=== PATIENT | female | born 1955 ===

== ENCOUNTER 2018-11-04 19:50 | Emergency (ER) | payer SELFPAY ==
--- NOTE | 2018-11-04 20:34 | C.PDOC ---
History Of Present Illness 63 year old female with no significant PMHx presents to the ED c/o SOB with deep inspiration and exertion. Patient also reports feeling burning sensation all over her body. Patient reports for the past 2 days she has been feeling mid sternal chest pain that is intermittent. Patient denies chills, nausea, vomit, diarrhea, rash, headache, visual changes, numbness. Time Seen by Provider: 11/04/18 20:29 Chief Complaint (Nursing): Chest Pain History Per: Patient History/Exam Limitations: no limitations Onset/Duration Of Symptoms: Days Current Symptoms Are (Timing): Still Present Quality: Tightness Exacerbating Factors: Deep Breathing, Exertion Recent travel outside of the [place]: No Additional History Per: Patient Past Medical History Reviewed: Historical Data, Nursing Documentation, Vital Signs Vital Signs: Last Vital Signs Temp 98.7 F 11/04/18 19:53 Pulse 84 11/04/18 19:53 Resp 14 11/04/18 19:53 BP 134/74 11/04/18 19:53 Pulse Ox 99 11/04/18 19:53 - Medical History PMH: No Chronic Diseases Surgical History: No Surg Hx Family History: States: Unknown Family Hx - Social History Hx Alcohol Use: No Hx Substance Use: No - Immunization History Hx Tetanus Toxoid Vaccination: Yes Hx Influenza Vaccination: Yes Hx Pneumococcal Vaccination: Yes Review Of Systems Constitutional: Negative for: Fever, Chills Eyes: Negative for: Vision Change Cardiovascular: Positive for: Chest Pain. Negative for: Palpitations Respiratory: Positive for: Shortness of Breath, SOB with Excertion. Negative for: Cough, Wheezing Gastrointestinal: Negative for: Nausea, Vomiting, Abdominal Pain Skin: Negative for: Rash Neurological: Negative for: Weakness, Numbness, Headache, Dizziness Physical Exam - Physical Exam Appears: Non-toxic, No Acute Distress Skin: Normal Color, Warm, Dry, No Rash Head: Atraumatic, Normacephalic Eye(s): bilateral: Normal Inspection Oral Mucosa: Moist Neck: Normal ROM, Supple Chest: Symmetrical Cardiovascular: Rhythm Regular Respiratory: Normal Breath Sounds, No Rales, No Rhonchi, No Wheezing Gastrointestinal/Abdominal: Soft, No Tenderness, No Guarding, No Rebound Extremity: Normal ROM, No Tenderness, No Swelling Neurological/Psych: Oriented x3, Normal Speech, Normal Cognition Gait: Steady ED Course And Treatment - Laboratory Results Result Diagrams: 11/04/18 21:19 11/04/18 21:19 ECG: Interpreted By Me, Viewed By Me ECG Rhythm: Sinus Rhythm Interpretation Of ECG: No prior for comparissons Rate From EC (BPM) O2 Sat by Pulse Oximetry: 99 (On RA) Pulse Ox Interpretation: Normal - Radiology CXR: Interpreted by Me, Viewed By Me CXR Interpretation: Yes: No Acute Disease. No: Infiltrates, Fracture Progress - Re-Evaluation Re-evaluation Note: 11/04/18 22:38 NO IMPROVE SX CO PERSIST CHEST BURNING. VSS. OFFERED ADMISSION, DOES NOT WISH TO STAY. WILL AMA The patient declines admission to the hospital and wishes to leave the Emergency Department. This action is against my medical advice. This decision was made with informed refusal. The patient was told that admission to the hospital is necessary. Explanation of the reasons why were discussed. The risks of leaving were explained to the patient and include, but are not limited to, worsening of known or currently unknown conditions, permanent disability and from undiagnosed or untreated conditions. The patient has the capacity to make this informed decision and understands my explanation of the current medical problem and risks of leaving. The patient voluntarily accepts these risks and signed an AMA form documenting our conversation. The patient was given the opportunity to ask questions and reconsider. The patient was encouraged to return to the Emergency Department at any time for further care. - Data Reviewed Data Reviewed: Lab, Diagnostic imaging, EKG, Old records Medical Decision Making Medical Decision Making: Plan: * EKG * Labs * CXR * Nitro 0.4 mg SL * Pepcid 20 mg IVP * Toradol 30 mg IVP * Tylenol 975 mg PO Disposition Counseled Patient/Family Regarding: Studies Performed, Diagnosis, Need For Followup - Disposition Referrals: [facility] [Outside] [facility] [Outside] Disposition: AGAINST MEDICAL ADVICE Disposition Time: 23:09 Condition: GOOD Additional Instructions: VOUS AVEZ T DELPHINE DE LA NCESSIT DE MEG LOZANO MDCORINA D'URGENCE. VOUS AVEZ T DELPHINE PATRICE RISQUES DE QUITTER, INCLUANT INCAPACIT, DTERIORATION ET MORT. VOUS AVEZ DCLAR UNE COMPRHENSION VERBALE ET VOUS SOUHAITEZ PROCDER PARTIR PATRICE DELPHINE MDICAUX SUIVEZ AVEC VOTRE PMD DS QUE POSSIBLE. RETOURNER SI LES SYMPTMES D'AGRMENT. Instructions: Chest Pain (DC), Leaving Against Medical Advice Forms: [facility] (Belgian) - Clinical Impression Clinical Impression: Chest pain - Scribe Statement The provider has reviewed the documentation as recorded by the Scribe Sunny Jaime All medical record entries made by the Scribe were at my direction and personally dictated by me. I have reviewed the chart and agree that the record accurately reflects my personal performance of the history, physical exam, medical decision making, and the department course for this patient. I have also personally directed, reviewed, and agree with the discharge instructions and disposition.
[2018-11-04 21:27] LABS: BASO % 0.5 % (0.0-2.0); EOS % 0.3 % (0.0-4.0); LYMPH # 2.3 K/uL (1.0-4.3); LYMPH % 37.5 % (20.0-40.0); MEAN CELL VOLUME 74.7 fL (81.0-99.0); MEAN CORPUSCULAR HEMOGLOBIN 26.4 pg (27.0-31.0); MEAN CORPUSCULAR HGB CONC 35.4 g/dL (33.0-37.0); MEAN PLATELET VOLUME 8.4 fL (7.2-11.7); MONO # 0.5 K/uL (0.0-0.8); MONO % 8.3 % (0.0-10.0); NEUT # 3.3 K/uL (1.8-7.0); NEUT % 53.4 % (50.0-75.0); NRBC % 0.2 % (0.0-2.0); RBC 4.91 Mil/uL (3.80-5.20); RED CELL DISTRIBUTION WIDTH 13.7 % (11.5-14.5); WHITE BLOOD COUNT 6.2 K/uL (4.8-10.8)
[2018-11-04 21:41] LABS: ALB/GLOB RATIO 1.3 (1.0-2.1); ALBUMIN 4.3 g/dL (3.5-5.0); ALT/SGPT 27 U/L (9-52); AST/SGOT 34 U/L (14-36); BLOOD UREA NITROGEN 8 mg/dL (7-17); CALCIUM 9.7 mg/dl (8.6-10.4); GFR NON-AFRICAN AMERICAN > 60; LIPASE 92 U/L (23-300)
[2018-11-04 22:16] VITALS: RESP 24
[2018-11-04 23:21] VITALS: BP 145/81; PULSE 71; TEMP 98.1; O2SAT 100
--- NOTE | 2018-11-05 09:28 | RAD ---
Chest x-ray two views HISTORY: Chest pain. COMPARISON: None available. Findings: Biapical pleural thickening with upper lobe granulomatous changes. No focal infiltrate or effusion. Bibasilar breast and nipple shadows. Tortuous aorta. Heart size within normal limits. Degenerative changes in the spine. Impression: Biapical pleural thickening with upper lobe granulomatous changes. No focal infiltrate or effusion. Bibasilar breast and nipple shadows. Tortuous aorta. Heart size within normal limits.
--- NOTE | 2018-11-05 23:27 | CARD ---
APPROVED REPORT Date of service: 11/04/2018 EKG Measurement Heart [id number] VT [id number] <Conclusion> Normal sinus rhythm Possible Left atrial enlargement Borderline ECG
== END 2018-11-04 23:35 | disposition left against medical advice (07) ==
LOC: C.ER 19:50
DX: R07.9 Chest pain, unspecified (principal)
CPT/HCPCS: 71046; 80053; 83690; 84484; 85025; 93005; 96374; 96375; 99285; J1885